=== PATIENT | male | born 1990 | race African-American/Black ===

== ENCOUNTER 2024-11-17 04:50 | Emergency (ER) | payer SELFPAY ==
[~2024-11-17] VITALS: Ht 180.3 cm; Wt 132.0 kg
[2024-11-17 05:01] VITALS: O2SAT 97
[2024-11-17 05:38] VITALS: TEMP 36.8
[2024-11-17 06:40] VITALS: BP 144/87; PULSE 93; RESP 19; O2SAT 98
[2024-11-17] MEDS: ACETAMINOPHEN 325MG TABLET PO ONE (07:12)
== END 2024-11-17 11:09 | disposition home or self-care (01) ==
LOC: ER 05:01
DX: M25.522 Pain in left elbow (principal); R20.2 Paresthesia of skin; R20.0 Anesthesia of skin; Z88.0 Allergy status to penicillin
CPT/HCPCS: 73080; 73090; 73110; 99284; Z7610; 73070; A4606